=== PATIENT | female | born 1935 | race Caucasian/White ===

== ENCOUNTER → 2017-05-29 | Outpatient (CLI) | payer MEDICARE ==
[~2017-05-29] MED LIST: NEXIUM40 MG PO; RELAFEN500 MG PO; TOPROL XL 25MG25 MG PO
--- NOTE | 2017-05-29 12:51 | RADIOLOGY REPORT PS360 ---
HIP RT 2-3V W/PELVIS IF PERFOR HISTORY: RT HIP PAIN ORDERING PHYSICIAN: Yogesh Aguayo MD PATIENT AGE: 82 years COMPARISON: None FINDINGS: There are severe osteoarthritic changes of the right hip with loss of joint space, osteosclerosis, and osteophyte formation. There is some dysplastic change of the right femoral head with subcortical lucencies consistent with subcortical cystic change. Also noted are osteoarthritic changes of the SI joints. IMPRESSION: Severe osteoarthritis of the right hip with dysplastic change of the femoral head and subcortical cysts of the femoral head
== END ==
LOC: RAD 11:24
DX: M25.551 Pain in right hip (principal)